=== PATIENT | male | born 1970 | race Two or more races ===

== ENCOUNTER 2018-03-24 21:31 | Emergency (ER) | payer BC ==
[~2018-03-24] VITALS: Ht 170.2 cm; Wt 83.9 kg
[2018-03-24] MEDS ORDERED: ONDANSETRON 4 MG TAB.RAPDIS SL ONE (23:00)
[2018-03-24] MEDS ORDERED: ONDANSETRON 4 MG TAB.RAPDIS ONE (23:29)
[2018-03-24] MEDS ORDERED: HYDROCODONE/APAP 10/325MG 1 EA TABLET ONE (23:29)
[2018-03-24] MEDS: HYDROCODONE/APAP 10/325MG 1 EA TABLET PO ONE ×2 (23:42→23:47)
--- NOTE | 2018-03-24 23:48 | NUR ---
PT REFUSES NORCO, WORRIED THAT IT WILL MAKE HIM TIRED AND UPSET HIS STOMACH. PT REQUESTS TYLENOL INSTEAD. [employer]CO WASTED WITH [employer]MINISTRATOR. VERBAL ORDER FOR TYLENOL 650MG OBTAINED AND ADMINISTERED
[2018-03-24] MEDS ORDERED: ACETAMINOPHEN 325 MG TABLET ONE (23:50)
[2018-03-25] MEDS ORDERED: ACETAMINOPHEN 325 MG TABLET PO ONE
--- NOTE | 2018-03-25 01:01 | NUR ---
Patient discharged to home in stable condition. Written and verbal after care instructions given. Patient verbalizes understanding of instruction. ambulatory with a steady gait noted. pt [id number] no acute distress noted, resp even and unlabored.
[2018-03-25 01:05] VITALS: BP 134/73
== END 2018-03-25 01:06 | disposition home or self-care (01) ==
LOC: ER 21:37
DX: M54.2 Cervicalgia (principal); M54.6 Pain in thoracic spine; Z98.890 Other specified postprocedural states; V49.69XA Unspecified car occupant injured in collision with other motor vehicles in traffic accident, initial encounter; Y93.89 Activity, other specified; Y92.413 State road as the place of occurrence of the external cause; Y99.8 Other external cause status
CPT/HCPCS: 72074-TC; 72125-TC; A4606; Q0162; Z7610